=== PATIENT | female | born 2005 | race Caucasian/White ===

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

== ENCOUNTER 2025-01-02 08:29 | Emergency (ER) | payer MEDICAID, SELFPAY ==
[2025-01-02 08:30] VITALS: BMI 41.1
--- NOTE | 2025-01-02 08:56 | EDNOTE_ITS ---
Upper Respiratory Inf. RME/HPI General Chief Complaint: Flu Like Symptoms Stated Complaint: FEVER/CXP x 4 DAYS, COUGHED BLOOD TODAY Time Seen by Provider: 01/02/25 08:56 Source: patient Arrival date/time: 01/02/25 08:29 19-year-old female with no known medical history presents to the emergency room with a chief complaint of fever, coughing up blood x 1 day, congestion x 4 days. Mode of arrival: ambulatory Limitations: no limitations Related Data Previous Rx's ?Medication ?Instructions ?Recorded ibuprofen 200 mg tablet (Motrin IB) 400 mg (2 x 200 mg ) PO Q6H PRN 10/21/20 fever or pain #30 tabs fluticasone propionate 50 1 spray intranasal QDAY #15. 8 mL 09/09/24 mcg/actuation nasal spray,suspension (Flonase Allergy Relief) pseudoephedrine HCl 30 mg tablet 30 mg PO Q12HR #14 ta bs 09/09/24 (Sudafed) acetaminophen 500 mg capsule 500 mg PO Q6H PRN pain #3 0 caps 11/25/24 ibuprofen 600 mg tablet 600 mg PO Q8H PRN pain #20 t abs 11/25/24 azithromycin 250 mg tablet See Rx Instructions PO .COM PLEX #6 01/02/25 (Zithromax Z-Clarence) tabs Allergies Allergy/AdvReac Type Severity Reaction Status Date / Time No Known Allergies Allergy Verified 01/02/25 08:32 Review of Systems Review of Systems Systems Reviewed: All systems reviewed, normal except as documented Constitutional Constitutional: Reports system reviewed and no additional complaints, except as documented, Denies fatigue, Reports fever(s), Denies headache(s) and Reports weakness Eyes Eyes: Reports system reviewed and no additional complaints, except as do cumented, Denies blurry vision and Denies change in vision ENT Ears, Nose, Mouth, and Throat: Reports system reviewed and no additional complaints, except as documented, Denies otalgia, Denies headache(s), Denies nasal congestion, Denies throat swelling and Denies vertigo Cardiovascular Cardiovascular: Reports system reviewed and no additional complaints, except as documented, Denies chest pain, Reports dyspnea and Denies dyspnea on exertion Respiratory Respiratory: Reports system reviewed and no additional complaints, except as documented, Denies chest congestion, Reports cough, Reports dyspnea, Denies dyspnea on exertion, Reports hemoptysis and Denies wheezing Gastrointestinal Gastrointestinal: Reports system reviewed and no additional complaints, except as documented, Denies abdominal pain, Denies cramping, Denies nausea and Denies vomiting Genitourinary Genitourinary: Reports system reviewed and no additional complaints, except as documented Musculoskeletal Musculoskeletal: Reports system reviewed and no additional complaints, except as documented and Denies back pain Integumentary/Breasts Skin/Breast: Reports system reviewed and no additional complaints, except as documented and Denies wounds Neurologic Neurologic: Reports system reviewed and no additional complaints, except as documented, Denies confusion, Denies headache(s), Denies lack of coordination, Denies vertigo and Reports weakness Psychiatric Psychiatric: Reports system reviewed and no additional complaints, except as documented, Denies anxiety, Denies confusion, Denies depression, Denies paranoia, Denies suicidal ideation and Denies tactile hallucinations Endocrine Endocrine: Reports system reviewed and no additional complaints, except as documented and Denies fatigue Hematologic/Lymphatic Hematologic/Lymphatic: Reports system reviewed and no additional complaints, except as documented and Denies lymphadenopathy Allergic/Immunologic Allergic/Immunologic: Reports system reviewed and no additional complaints, exce pt as documented, Denies throat swelling, Denies urticaria and Denies wheezing Past Medical History Past Medical History CARDIAC: Negative Congestive Heart Failure RESPIRATORY: Negative Chronic Obstructive Pulmonary Disease (COPD) GASTROINTESTINAL: Positive Gastrointestinal Disorders and Irritable Bowel GENITOURINARY: Negative Renal Disease ENDOCRINE: Negative Diabetes Mellitus Type 1 or Diabetes Mellitus Type 2 PSYCHO/SOCIAL: Positive Anxiety Social History SMOKING STATUS: Never smoker ED Exam General Limitations: Present no limitations General appearance: Present alert and in no apparent distress Head Head exam: Present atraumatic Eye Eye exam: Present normal appearance, PERRL and EOMI ENT ENT exam: Present normal exam, normal oropharynx and mucous membranes moist Neck Neck exam: Present normal inspection, full ROM and trachea midline Chest Chest inspection: Present normal inspection and symmetric chest wall rise Respiratory Respiratory exam: Present normal lung sounds bilaterally and wheezes; Absent respiratory distress, stridor or accessory muscle use Expanded Respiratory Exam Location: Left: wheezes, Right: wheezes and Lower: wheezes Cardiovascular Cardiovascular exam: Present regular rate, normal rhythm, tachycardia and normal heart sounds Abdominal Exam Abdominal exam: Present soft and normal bowel sounds Extremities Exam Extremities exam: Present normal inspection and full ROM Back Exam Back exam: Present normal inspection and full ROM Neurological Exam Neurological exam: Present alert, oriented X3 and CN II-XII intact Psychiatric Psychiatric exam: Present normal affect and normal mood Skin Skin exam: Present warm, dry, intact and normal color Course Quality Measures none Orders Category Date Time Status Bedside COVID-19 Antigen Test NOW Care 01/02/25 08:56 Completed Bedside Influenza A&B Antigen Test NOW Care 01/02/25 08:56 Completed XR chest 2V Stat Exams 01/02/25 08:56 Completed Acetaminophen Tab [Tylenol Tab] Med 01/02/25 08:56 Discontinued 650 mg PO X1 ONE Albuterol/Ipratr Rt Marisabel [Duoneb Rt Marisabel] Med 01/02/25 08:56 Discontinued 3 ml INH X1 ONE Dexamethasone Inj [Decadron Inj] Med 01/02/25 08:56 Discontinued 10 mg PO X1 ONE Vital Signs Vital signs: Vital Signs Temperature 99.2 F 01/02/25 08:57 Pulse Rate 113 H 01/02/25 08:57 Respiratory Rate 20 01/02/25 08:57 Blood Pressure 141/92 H 01/02/25 08:57 Pulse Oximetry (%) 97 01/02/25 08:57 Oxygen Delivery Method Room Air 01/02/25 08:57 O2 saturation 97% within normal limits Upper Respiratory Infection MDM Narrative MDM Narrative:: 19-year-old female with no known medical history presents to the emergency room with a chief complaint of fever, coughing up blood x 1 day, congestion x 4 days. The patient is hemodynamically stable and in no apparent distress Lung sounds show bilateral wheezing to the lower lobes. Chest x-ray was completed and shows pneumonia to the left lower base. COVID-19 and influenza were negative Patient was discharged and educated to follow-up with primary care provider and return to the emergency room for any evidence of worsening signs or symptoms Patient data External records reviewed:: [facility] previous records Clinical information provided by:: patient Social determinants that could affect healthcare access:: none Patient has the following chronic illnesses:: No chronic illness How is presenting disease/condition affected by chronic disease/condition?: no chronic disease Evaluation data The following diagnostics were reviewed and interpreted by me:: lab results and radiology exam(s) Lab and/or radiology exams considered but not ordered:: Labs and radiology exams considered and ordered Interpretation Summary: Chest [id number]: Suspicious for early pneumonia left base Normal heart size No pulmonary edema IMPRESSION: Suspicious for early pneumonia left base Medications / Prescriptions Medications or Prescriptions considered but not ordered:: Medication given Medication administrations:: Medication Administration History Discontinued Medications Acetaminophen (Acetaminophen 325 Mg Tablet) 650 mg PO X1 ONE Stop: 01/02/25 08:57 Last Admin: 01/02/25 09:21 Dose: 650 mg Documented By: SHEELA Albuterol/Ipratropium (Albuterol/Ipratropium (Duoneb) Rt Marisabel 3 Ml Nebu) 3 ml INH X1 ONE Stop: 01/02/25 08:57 Last Admin: 01/02/25 09:28 Dose: 3 ml Documented By: DYLAN Dexamethasone Sodium Phosphate (Dexamethasone Sod Phos Inj 10 Mg/Ml Vial) 10 mg PO X1 ONE Stop: 01/02/25 08:57 Last Admin: 01/02/25 09:23 Dose: 10 mg Documented By: SHEELA Comments: GIVEN BY MOUTH Medication given Consultations Consultation(s) initiated? (list below): No Diagnosis Upper Respiratory Differential Diagnosis: upper respiratory infection, viral infection, bronchitis, influenza, pharyngitis and other (Community-acquired pneumonia) Most likely diagnosis given after review of the tests above:: Community-acquired pneumonia Admission Indicated Admission indicated?: not indicated Admission Request Was there a request for admission?: No Disposition Plan Disposition Plan: Discharge Discharge Attestation Discharge Attestation: The patient and all family members were given an opportunity to ask questions and understood the discharge instructions. Discharge instructions specifically effects, indications for sooner follow up or return to the emergency department, and the expected course of current diagnosis. Patient condition: Stable Discharge Plan Plan Patient Disposition: HOME (Self Care) Disposition Comment: Stable Prescriptions/Referrals Prescriptions/Med Rec: New azithromycin [Zithromax Z-Clarence] 250 mg tablet See Rx Instructions .ROUTE .COMPLEX Qty: 6 0RF Rx Instructions: For 250 mg dose pack: take 500 mg today (day 1), then 250 mg for 4 days (days 2-5) No Action ibuprofen [Motrin IB] 200 mg tablet 400 mg PO Q6H PRN (Reason: fever or pain) Qty: 30 0RF pseudoephedrine HCl [Sudafed] 30 mg tablet 30 mg PO Q12HR Qty: 14 0RF fluticasone propionate [Flonase Allergy Relief] 50 mcg/actuation spray,suspension 1 spray intranasal QDAY Qty: 15.8 0RF Rx Instructions: administer into each nostril ibuprofen 600 mg tablet 600 mg PO Q8H PRN (Reason: pain) Qty: 20 0RF acetaminophen 500 mg capsule 500 mg PO Q6H PRN (Reason: pain) Qty: 30 0RF Referrals: Ronnell Villarreal MD [Primary Care Provider] - In 1 week Problem List Clinical Impression: Community acquired pneumonia Patient/Caregiver Discharge Instructions Education Materials: ED Pneumonia (Adult) Additional Instructions: Please follow-up with your primary care provider in the next 24 to 48 hours. Your chest x-ray showed early pneumonia. Antibiotics are sent to your pharmacy please pick them up and take them as indicated. For any evidence of worsening signs or symptoms please return to the emergency room immediately Print Language: Faroese Stand Alone Forms: Elisa Award Info., Patient Portal Info Letter PA/RESOURCE MANAGER FORESTER Supervising Physician PA/ELEAZAR Supervising Physician: Dr Perry
--- NOTE | 2025-01-02 08:56 | XR_ITS ---
Examination: PA lateral chest 2 views TECHNIQUE: Upright PA lateral chest 2 views Exam date and time: January 02, 2025 0912 hours INDICATIONS: Coughing fever beginning 4 days ago. FINDINGS: Suspicious for early pneumonia left base Normal heart size No pulmonary edema IMPRESSION: Suspicious for early pneumonia left base
[2025-01-02 08:57] VITALS: BP 141/92; PULSE 113; RESP 20; TEMP 37.3; O2SAT 97
[2025-01-02] MEDS: ACETAMINOPHEN 325 MG TABLET 650 MG PO (09:21)
[2025-01-02] MEDS: DEXAMETHASONE SOD PHOS INJ 10 MG/ML VIAL PO (09:23)
[2025-01-02] MEDS: ALBUTEROL/IPRATROPIUM (Duoneb) RT SOL 3 ML NEBU INH (09:28)
[2025-01-02 09:29] VITALS: PULSE 94; RESP 18; O2SAT 98
== END 2025-01-02 10:30 | disposition home or self-care (01) ==
PROVIDERS: Emergency Provider Emergency Medicine; PCP Family Medicine
DX: J18.9 Pneumonia, unspecified organism (principal); R04.2 Hemoptysis
CPT/HCPCS: 71046; 87400; 87811; 94640; 99283; A9270; J1100

== ENCOUNTER 2025-02-26 13:25 | Emergency (ER) | payer MEDICAID, SELFPAY ==
[2025-02-26 13:27] VITALS: BMI 43.8
[2025-02-26 13:43] VITALS: BP 131/87; PULSE 104; RESP 18; TEMP 36.8; O2SAT 96
--- NOTE | 2025-02-26 13:49 | XR_ITS ---
Examination: PA chest single view TECHNIQUE: Upright PA chest single view Exam date and time: February 26, 2025 1452 hours Comparison January 02, 2025 INDICATIONS: History pneumonia left lung base, coughing fever 4 days. FINDINGS: Normal heart size Poor definition left cardiac contour Osseous structures are intact IMPRESSION: Recommend lateral chest view follow-up to exclude early pneumonia in the lingular segment left upper lobe
--- NOTE | 2025-02-26 13:50 | EDNOTE_ITS ---
ED General RME/HPI General Chief complaint: General Adult/Misc Complain Stated complaint: POSS UTI; PNA 1 MO AGO,FEELS LIKE IT'S COMING BACK Time Seen by Provider: 02/26/25 13:46 Arrival date/time: 02/26/25 13:25 CC: Cough with from painful urination HPI patient has had 2 weeks of cough with phlegm , patient states she was on antibiotics for pneumonia but the symptoms have not changed. The patient states that last night she was feeling feverish but had no temperature as she checked. Patient also states that she has had painful urination times week and a half is seen at [facility] and told she does not have a urinary tract infection but wants a second opinion because it continues to burn when she urinates. Patient denies blood in urine Related Data Previous Rx's ?Medication ?Instructions ?Recorded ibuprofen 200 mg tablet (Motrin IB) 400 mg (2 x 200 mg ) PO Q6H PRN 10/21/20 fever or pain #30 tabs fluticasone propionate 50 1 spray intranasal QDAY #15. 8 mL 09/09/24 mcg/actuation nasal spray,suspension (Flonase Allergy Relief) pseudoephedrine HCl 30 mg tablet 30 mg PO Q12HR #14 ta bs 09/09/24 (Sudafed) acetaminophen 500 mg capsule 500 mg PO Q6H PRN pain #3 0 caps 11/25/24 ibuprofen 600 mg tablet 600 mg PO Q8H PRN pain #20 t abs 11/25/24 azithromycin 250 mg tablet See Rx Instructions PO .COM PLEX #6 01/02/25 (Zithromax Z-Clarence) tabs phenazopyridine 100 mg tablet 100 mg PO TID #6 tabs (Pyridium) Allergies Allergy/AdvReac Type Severity Reaction Status Date / Time No Known Allergies Allergy Verified 02/26/25 13:30 Review of Systems Review of Systems Narrative Review of Systems: GEN: No fever, no chills, no weight loss EYES: No discharge, no visual changes, no pain HEENT: No ear pain, no congestion, no sore throat PULM: No shortness of breath, + cough, no congestion CV: No chest pain, no dyspnea on exertion, no palpitations GI: No nausea, no vomiting, no diarrhea, no pain, no constipation : No frequency, no urgency, + dysuria MUSC/SKEL: No joint pain, no back pain SKIN: No rash PSYCH: No hallucinations, no depression HEME/LYMPH: No easy bleeding or bruising tendencies NEURO: No weakness, no headache Past Medical History Past Medical History CARDIAC: Negative Congestive Heart Failure RESPIRATORY: Negative Chronic Obstructive Pulmonary Disease (COPD) GASTROINTESTINAL: Positive Gastrointestinal Disorders and Irritable Bowel GENITOURINARY: Negative Renal Disease ENDOCRINE: Negative Diabetes Mellitus Type 1 or Diabetes Mellitus Type 2 PSYCHO/SOCIAL: Positive Anxiety Social History SMOKING STATUS: Former smoker ED Exam Narrative Physical exam: [General: Obese not in any acute distress Head normocephalic HEENT: Within acceptable limits Neck is supple nontender Chest equal chest rise nontender to palpation Respiratory: Clear to auscultation no wheezes crackles or rubs CV: Rate rhythm is regular no murmurs rubs or clicks Abdomen is distended secondary to body habitus soft nontender no masses positive bowel sounds all 4 quadrants Back: No CVA tenderness no spinous process tenderness from cervical spine thoracic and lumbar spine Skin: Intact no petechiae rash induration ulceration or crepitus Extremities: Moving all extremity against resistance cap refill less than 2 seconds neurosensory intact Neuro: Awake alert oriented x3 Glascow coma 15 no focal deficits] Course Quality Measures none Orders Category Date Time Status Bedside Influenza A&B Antigen Test NOW Care 02/26/25 13:49 Completed XR chest 1V Stat Exams 02/26/25 13:49 Taken HCG Qualitative,Urine Stat Lab 02/26/25 14:00 Completed Urinalysis Stat Lab 02/26/25 14:00 Completed Vital Signs Vital signs: Vital Signs Temperature 98.3 F 02/26/25 13:43 Pulse Rate 104 H 02/26/25 13:43 Respiratory Rate 18 02/26/25 13:43 Blood Pressure 131/87 H 02/26/25 13:43 Pulse Oximetry (%) 96 02/26/25 13:43 Oxygen Delivery Method Room Air 02/26/25 13:43 [facility] Patient data External records reviewed:: [facility] previous records Clinical information provided by:: patient Social determinants that could affect healthcare access:: none Patient has the following chronic illnesses:: Obesity How is presenting disease/condition affected by chronic disease/condition?: uneffected by Evaluation data The following diagnostics were reviewed and interpreted by me:: lab results and radiology exam(s) Lab and/or radiology exams considered but not ordered:: Influenza AMB is negative Chest x-ray is negative for pneumonia Urine is clean and no UTI. Interpretation Summary: Patient is most likely a URI that is causing her cough. Patient will be discharged home Medications Medications considered but not ordered:: None none Medication administrations:: None Consultations Consultation(s) initiated? (list below): No Diagnosis Differential Diagnosis ED Complaint MDM: URI cough pneumonia Most likely diagnosis given after review of the tests above:: URI cough Admission Indicated Admission indicated?: not indicated Explain why admission is indicated or not indicated:: Stable for discharge Admission Request Was there a request for admission?: No Disposition Plan Disposition Plan: Discharge Discharge Attestation Discharge Attestation: The patient and all family members were given an opportunity to ask questions and understood the discharge instructions. Discharge instructions specifically effects, indications for sooner follow up or return to the emergency department, and the expected course of current diagnosis. Patient condition: Stable Medical Decision Making Differential Diagnosis Differential Diagnosis: URI cough pneumonia Lab Data Labs: Lab Results 02/26/25 Range/Units 14:00 Ur Collection Type Clean Catch Urine Color Lt-Yellow (Lt Yel-Yel) Urine Clarity Clear (Clear/Hazy) Urine pH 7.0 (5.0-7.0) Ur Specific [place] 1.028 (1.001-1.035) Urine Protein Trace (Neg - Trace) Urine Glucose (UA) Negative (Negative) Urine Ketones Negative (Negative) Urine Blood Negative (Negative) Urine Nitrite Negative (Negative) Urine Bilirubin Negative (Negative) Urine Urobilinogen (Auto) Negative (0.0-1.0) mg/dL Ur Leukocyte Esterase Negative (Negative) Urine RBC 2 (0-3) /hpf Urine WBC 1 (0-5) /hpf Ur Squamous Epith Cells 3 (0-5) /hpf Urine Bacteria None (None) Urine HCG, Qual Negative Discharge Plan Plan Patient Disposition: HOME (Self Care) Patient condition on transfer: Stable Prescriptions/Referrals Prescriptions/Med Rec: New phenazopyridine [Pyridium] 100 mg tablet 100 mg PO TID Qty: 6 0RF No Action ibuprofen [Motrin IB] 200 mg tablet 400 mg PO Q6H PRN (Reason: fever or pain) Qty: 30 0RF pseudoephedrine HCl [Sudafed] 30 mg tablet 30 mg PO Q12HR Qty: 14 0RF fluticasone propionate [Flonase Allergy Relief] 50 mcg/actuation spray,suspension 1 spray intranasal QDAY Qty: 15.8 0RF Rx Instructions: administer into each nostril azithromycin [Zithromax Z-Clarence] 250 mg tablet See Rx Instructions .ROUTE .COMPLEX Qty: 6 0RF Rx Instructions: For 250 mg dose pack: take 500 mg today (day 1), then 250 mg for 4 days (days 2-5) ibuprofen 600 mg tablet 600 mg PO Q8H PRN (Reason: pain) Qty: 20 0RF acetaminophen 500 mg capsule 500 mg PO Q6H PRN (Reason: pain) Qty: 30 0RF Referrals: Ronnell Villarreal MD [Physician] - In 1 week No Primary/Family,Physician [Primary Care Provider] - In 1 week Problem List Clinical Impression: Cough, Dysuria Patient/Caregiver Discharge Instructions Other Activity Instructions:: Your urine shows no signs whatsoever of urinary tract infection. Your chest x-ray is negative for any pneumonia most likely a virus that is causing the cough. Please take [id number] cough medicine. I will prescribe you Pyridium for the painful urination. Education Materials: Dysuria, ED Cough Chronic Uncertain Cause Adult, ED Dysuria, Uncertain Cause (Adult) Print Language: Ecuadorean Stand Alone Forms: Elisa Award Info., Patient Portal Info Letter, Work/School Release PA/[employer] Supervising Physician PA/[employer] Supervising Physician: Marcela Wiggins ENP
[2025-02-26 14:08] LABS: Collection Type, Urine Clean Catch
[2025-02-26 14:15] LABS: HCG Qualitative,Urine Negative
[2025-02-26 14:17] LABS: Bilirubin,Urine Negative (Negative); Blood,Urine Negative (Negative); Clarity,Urine Clear (Clear/Hazy); Color,Urine Lt-Yellow (Lt Yel-Yel); Glucose, Urine Negative (Negative); Ketones,Urine Negative (Negative); Leukocyte Esterase,Urine Negative (Negative); Nitrite,Urine Negative (Negative); Protein,Urine Trace (Neg - Trace); RBC,Urine 2 /hpf (0-3); Specific Gravity,Urine 1.028 (1.001-1.035); Squamous Epithelial Cell,Urine 3 /hpf (0-5); Urobilinogen,Urine Negative mg/dL (0.0-1.0); WBC,Urine 1 /hpf (0-5)
== END 2025-02-26 15:35 | disposition home or self-care (01) ==
PROVIDERS: Registered Nurse General Practice; Emergency Provider Emergency Medicine
DX: R05.9 Cough, unspecified (principal); R30.0 Dysuria
CPT/HCPCS: 71045; 81001; 81025; 87400; 99283

== ENCOUNTER 2025-03-16 22:10 | Emergency (ER) | payer MEDICAID, SELFPAY ==
[2025-03-16 22:11] VITALS: BMI 45.3
[2025-03-16 22:25] VITALS: BP 148/91; PULSE 104; RESP 18; TEMP 37.4; O2SAT 97
--- NOTE | 2025-03-16 22:46 | PD.EDFMALE ---
ED Female Urogenital RME/HPI General Chief complaint: Urogenital-Female Stated complaint: FREQUENCY/BURNING WITH URINATION Time Seen by Provider: 03/16/25 22:16 Arrival date/time: 03/16/25 22:10 19 year old female present to emergency room with c/o of urgency,frequency and dysuria for 3 days. new sexually partner. Patient would like G/C testing. SEVERITY: Symptoms are described as being severe with limitations on activities of daily living CONTEXT: The patient is unable to identify any inciting events. DURATION/TIMING: The symptoms started approximately 3 days ASSOCIATED SYMPTOMS: The patient is unable to identify any other associated symptoms. MODIFYING FACTORS: The patient is unable to identify any alleviating or aggravating symptoms. PERTINENT ROS: no fevers, no chest pain/shortness of breath no nausea,vomiting, diarrhea, no dizziness/headache no rash no loc/syncope episode no abd/back pain REVIEW OF SYSTEMS: See History of Present Illness - with the exception of those mentioned in the history of present illness, all other systems reviewed and reported as negative GENERAL: In general the patient is awake, interactive, in an emergency department gurney. HEAD/EYES/EARS/NOSE/THROAT: normo-cephalic, atraumatic, mucus membranes are moist, anicteric, palpebral conjunctiva is pink, trachea is midline. CARDIOVASCULAR: regular rate and regular rhythm, no murmurs, heart sounds are not distant, strong pulses in all four extremities that are equal and symmetric bilateral upper and lower extremities, normal capillary refill. ABDOMEN: soft, not tender, no masses appreciated BACK: normal range of motion without pain. NEUROLOGICAL: cranio-facial features are symmetric, moves all four extremities equally without obvious limitations or weakness. EXTREMITY: no tenderness to palpation over the long bones or large joints of the bilateral upper and lower extremities, no joint swelling, no joint erythema, no signs of trauma, no unilateral leg swelling and no peripheral edema. SKIN: warm, dry, well-perfused, no jaundice, no rash, no telangiectasias or petechia. PSYCH: calm, cooperative, no evidence of psychosis or agitation Related Data Previous Rx's ?Medication ?Instructions ?Recorded ibuprofen 200 mg tablet (Motrin IB) 400 mg (2 x 200 mg) PO Q6H PRN 10/21/20 fever or pain #30 tabs fluticasone propionate 50 1 spray intranasal QDAY #15.8 mL 10/13/24 mcg/actuation nasal spray,suspension (Flonase Allergy Relief) pseudoephedrine HCl 30 mg tablet 30 mg PO Q12HR #14 tabs 09/09/24 (Sudafed) acetaminophen 500 mg capsule 500 mg PO Q6H PRN pain #30 caps 11/25/24 ibuprofen 600 mg tablet 600 mg PO Q8H PRN pain #20 tabs 11/25/24 azithromycin 250 mg tablet See Rx Instructions PO .COMPLEX #6 01/02/25 (Zithromax Z-Clarence) tabs phenazopyridine 100 mg tablet 100 mg PO TID #6 tabs 02/26/25 (Pyridium) nitrofurantoin 100 mg PO Q12H 5 days #10 caps 03/17/25 monohydrate/macrocrystals 100 mg capsule (Macrobid) Allergies Allergy/AdvReac Type Severity Reaction Status Date / Time No Known Allergies Allergy Verified 03/16/25 22:13 Course Course Course Narrative: urine: no infection g/c pending rx: macrobid 100mg bid for 5 days follow up with clinic for further STI testing ( HIV, Sypilis ) Quality Measures none Orders Category Date Time Status Chlamydia/GC/TV - PCR Stat Lab 03/16/25 23:03 Received HCG Qualitative,Urine Stat Lab 03/16/25 23:03 Completed UA [Urinalysis] Stat Lab 03/16/25 23:03 Completed Urine Culture Stat Lab 03/16/25 23:03 Received Nitrofurantoin Macro [Macrobid] Med 03/17/25 00:13 Once 100 mg PO X1 ONE Vital Signs Vital signs: Vital Signs Temperature 99.4 F 03/16/25 22:25 Pulse Rate 104 H 03/16/25 22:25 Respiratory Rate 18 03/16/25 22:25 Blood Pressure 148/91 H 03/16/25 22:25 Pulse Oximetry (%) 97 03/16/25 22:25 Oxygen Delivery Method Room Air 03/16/25 22:25 Urogenital - Female Patient data External records reviewed:: [facility] previous records Clinical information provided by:: patient Social determinants that could affect healthcare access:: none Patient has the following chronic illnesses:: n/a How is presenting disease/condition affected by chronic disease/condition?: no chronic disease Evaluation data The following diagnostics were reviewed and interpreted by me:: lab results Lab and/or radiology exams considered but not ordered:: n/a Interpretation Summary: Urine: no infection hcg: negative c/G pending Medications / Prescriptions Medications or Prescriptions considered but not ordered:: n/a Medication administrations:: Medication Administration History Nitrofurantoin Macrocrystals (Nitrofurantoin Macro 100 Mg Capsule) 100 mg PO X1 ONE Stop: 03/17/25 00:14 n/a Consultations Consultation(s) initiated? (list below): No Diagnosis Urogenital Female Differential Diagnosis: urinary tract infection and other (STI, ) Most likely diagnosis given after review of the tests above:: dysuria Admission Indicated Admission indicated?: not indicated Admission Request Was there a request for admission?: No Disposition Plan Disposition Plan: Discharge Discharge Attestation Discharge Attestation: The patient and all family members were given an opportunity to ask questions and understood the discharge instructions. Discharge instructions specifically effects, indications for sooner follow up or return to the emergency department, and the expected course of current diagnosis. Patient condition: Stable Discharge Plan Plan Patient Disposition: HOME (Self Care) Health Concerns: STI pending Return to ED if symptoms worsen Prescriptions/Referrals Prescriptions/Med Rec: New nitrofurantoin monohyd/m-cryst [Macrobid] 100 mg capsule 100 mg PO Q12H 5 Days Qty: 10 0RF Rx Instructions: must administer with a meal/food No Action ibuprofen [Motrin IB] 200 mg tablet 400 mg PO Q6H PRN (Reason: fever or pain) Qty: 30 0RF pseudoephedrine HCl [Sudafed] 30 mg tablet 30 mg PO Q12HR Qty: 14 0RF fluticasone propionate [Flonase Allergy Relief] 50 mcg/actuation spray,suspension 1 spray intranasal QDAY Qty: 15.8 0RF Rx Instructions: administer into each nostril azithromycin [Zithromax Z-Clarence] 250 mg tablet See Rx Instructions .ROUTE .COMPLEX Qty: 6 0RF Rx Instructions: For 250 mg dose pack: take 500 mg today (day 1), then 250 mg for 4 days (days 2-5) ibuprofen 600 mg tablet 600 mg PO Q8H PRN (Reason: pain) Qty: 20 0RF acetaminophen 500 mg capsule 500 mg PO Q6H PRN (Reason: pain) Qty: 30 0RF phenazopyridine [Pyridium] 100 mg tablet 100 mg PO TID Qty: 6 0RF Referrals: Ronnell Villarreal MD [Primary Care Provider] - In 1 week Problem List Clinical Impression: Dysuria Patient/Caregiver Discharge Instructions Education Materials: ED Dysuria, Uncertain Cause (Adult) Print Language: Wallisian Stand Alone Forms: Elisa Award Info., Patient Portal Info Letter
[2025-03-16 23:35] LABS: Collection Type, Urine Voided; RBC,Urine 0 /hpf (0-3); WBC,Urine 0 /hpf (0-5)
[2025-03-16 23:49] LABS: Bacteria,Urine Rare; Bilirubin,Urine Negative (Negative); Blood,Urine Negative (Negative); Clarity,Urine Clear (Clear/Hazy); Color,Urine Yellow (Lt Yel-Yel); Glucose, Urine 2+ (Negative); Ketones,Urine Negative (Negative); Leukocyte Esterase,Urine Negative (Negative); Nitrite,Urine Negative (Negative); Protein,Urine Trace (Neg - Trace); Specific Gravity,Urine 1.034 (1.001-1.035); Squamous Epithelial Cell,Urine 1 /hpf (0-5); Urobilinogen,Urine Negative mg/dL (0.0-1.0)
[2025-03-16 23:54] LABS: HCG Qualitative,Urine Negative
[2025-03-17] MEDS: NITROFURANTOIN MACRO 100 MG CAPSULE PO (00:38)
[2025-03-17 00:39] VITALS: BP 127/62; PULSE 78; RESP 18; TEMP 36.7; O2SAT 99
[2025-03-17 16:22] LABS: Chlamydia trachomatis PCR Negative (Not Detect); Neisseria Gonorrhoeae DNA PCR Negative (Not Detect); Trichomonas Negative (Negative)
== END 2025-03-17 00:40 | disposition home or self-care (01) ==
PROVIDERS: Physician Assistant; Emergency Provider Emergency Medicine; PCP Family Medicine
DX: R30.0 Dysuria (principal)
CPT/HCPCS: 81001; 81025; 87086; 87491; 87591; 87661; 99283; A9270

== ENCOUNTER 2025-03-19 13:50 | Emergency (ER) | payer MEDICAID, SELFPAY ==
[2025-03-19 14:14] VITALS: BP 102/69; PULSE 97; RESP 18; TEMP 37.1; O2SAT 99
--- NOTE | 2025-03-19 14:25 | XR_ITS ---
Examination: CT abdomen and pelvis without contrast. Coronal 3-D reconstructions. Sagittal 2-D reconstructions. Date and time of exam:March 19, 2025 1504 hours INDICATIONS: Bilateral flank pain beginning 2 days ago CTDI: vol (mGy): 16.6 DLP: (mGycm): 1018 Technique: Axial images of the abdomen have been obtained, 3 mm slice thickness Intravenous contrast material has not been administered. Low dose protocols were performed. One or more of the following dose reduction techniques were used; automated exposure control, adjustment of the mA and/or KV according to patient size, use of iterative reconstruction technique. Findings: No focal liver or splenic lesions Contracted gallbladder No pancreatic or adrenal mass No renal or ureteral calculi, no hydronephrosis Aorta normal size No pericecal inflammatory change No bowel obstruction or diverticulitis No pelvic mass Contracted urinary bladder IMPRESSION: No renal or ureteral calculi, no hydronephrosis No bladder mass or bladder calculi
--- NOTE | 2025-03-19 14:26 | EDNOTE_ITS ---
ED General RME/HPI General Chief complaint: General Adult/Misc Complain Stated complaint: L) FLANK PAIN SINCE STARTING ATB, UTI Time Seen by Provider: 03/19/25 14:23 Source: patient Arrival date/time: 03/19/25 13:50 19-year-old female with no known medical history presents to the emergency room with a chief complaint of left-sided flank pain and dysuria x 3 days. Patient states she was seen here for UTI and discharged with antibiotics but she developed flank pain. Mode of arrival: ambulatory Limitations: no limitations Related Data Previous Rx's ?Medication ?Instructions ?Recorded ibuprofen 200 mg tablet (Motrin IB) 400 mg (2 x 200 mg ) PO Q6H PRN 10/21/20 fever or pain #30 tabs fluticasone propionate 50 1 spray intranasal QDAY #15. 8 mL 09/09/24 mcg/actuation nasal spray,suspension (Flonase Allergy Relief) pseudoephedrine HCl 30 mg tablet 30 mg PO Q12HR #14 ta bs 09/09/24 (Sudafed) acetaminophen 500 mg capsule 500 mg PO Q6H PRN pain #3 0 caps 11/25/24 ibuprofen 600 mg tablet 600 mg PO Q8H PRN pain #20 t abs 11/25/24 azithromycin 250 mg tablet See Rx Instructions PO .COM PLEX #6 01/02/25 (Zithromax Z-Clarence) tabs phenazopyridine 100 mg tablet 100 mg PO TID #6 tabs (Pyridium) nitrofurantoin 100 mg PO Q12H 5 days #10 ca ps 03/17/25 monohydrate/macrocrystals 100 mg capsule (Macrobid) Allergies Allergy/AdvReac Type Severity Reaction Status Date / Time No Known Allergies Allergy Verified 03/19/25 13:54 Review of Systems Review of Systems Systems Reviewed: All systems reviewed, normal except as documented Constitutional Constitutional: Reports system reviewed and no additional complaints, except as documented, Denies fatigue, Denies fever(s), Denies headache(s) and Denies weakness Eyes Eyes: Reports system reviewed and no additional complaints, except as documented, Denies blurry vision and Denies change in vision ENT Ears, Nose, Mouth, and Throat: Reports system reviewed and no additional complaints, except as documented, Denies otalgia, Denies headache(s), Denies nasal congestion, Denies throat swelling and Denies vertigo Cardiovascular Cardiovascular: Reports system reviewed and no additional complaints, except as documented, Denies chest pain, Denies dyspnea and Denies dyspnea on exertion Respiratory Respiratory: Reports system reviewed and no additional complaints, except as documented, Denies chest congestion, Denies cough, Denies dyspnea, Denies dyspnea on exertion and Denies wheezing Gastrointestinal Gastrointestinal: Reports system reviewed and no additional complaints, except as documented, Denies abdominal pain, Denies cramping, Denies nausea and Denies vomiting Genitourinary Genitourinary: Reports system reviewed and no additional complaints, except as documented and Reports dysuria Musculoskeletal Musculoskeletal: Reports system reviewed and no additional complaints, except as documented and Reports back pain Integumentary/Breasts Skin/Breast: Reports system reviewed and no additional complaints, except as documented and Denies wounds Neurologic Neurologic: Reports system reviewed and no additional complaints, except as documented, Denies confusion, Denies headache(s), Denies lack of coordination, Denies vertigo and Denies weakness Psychiatric Psychiatric: Reports system reviewed and no additional complaints, except as documented, Denies anxiety, Denies confusion, Denies depression, Denies paranoia, Denies suicidal ideation and Denies tactile hallucinations Endocrine Endocrine: Reports system reviewed and no additional complaints, except as documented and Denies fatigue Hematologic/Lymphatic Hematologic/Lymphatic: Reports system reviewed and no additional complaints, except as documented and Denies lymphadenopathy Allergic/Immunologic Allergic/Immunologic: Reports system reviewed and no additional complaints, except as documented, Denies throat swelling, Denies urticaria and Denies wheezing ED Exam General Limitations: Present no limitations General appearance: Present alert and in no apparent distress Head Head exam: Present atraumatic Eye Eye exam: Present normal appearance, PERRL and EOMI ENT ENT exam: Present normal exam, normal oropharynx and mucous membranes moist Neck Neck exam: Present normal inspection, full ROM and trachea midline Chest Chest inspection: Present normal inspection and symmetric chest wall rise Respiratory Respiratory exam: Present normal lung sounds bilaterally Cardiovascular Cardiovascular exam: Present regular rate, normal rhythm and normal heart sounds Abdominal Exam Abdominal exam: Present soft and normal bowel sounds Extremities Exam Extremities exam: Present normal inspection and full ROM Back Exam Back exam: Present normal inspection, full ROM and CVA tenderness (L) Neurological Exam Neurological exam: Present alert, oriented X3 and CN II-XII intact Psychiatric Psychiatric exam: Present normal affect and normal mood Skin Skin exam: Present warm, dry, intact and normal color Course Quality Measures none Orders Category Date Time Status CT abdomen pelvis wo con Stat Exams 03/19/25 14:25 Completed CBC Stat Lab 03/19/25 14:30 Completed CMP [Comprehensive Metabolic Panel] Stat Lab 03/19/25 14:30 Completed UA [Urinalysis] Stat Lab 03/19/25 16:19 Completed Urine Culture Stat Lab 03/19/25 16:19 Received Vital Signs Vital signs: Vital Signs Temperature 98.7 F 03/19/25 14:14 Pulse Rate 97 03/19/25 14:14 Respiratory Rate 18 03/19/25 14:14 Blood Pressure 102/69 03/19/25 14:14 Pulse Oximetry (%) 99 03/19/25 14:14 Oxygen Delivery Method Room Air 03/19/25 14:14 O2 saturation 99% within normal limits Discharge Plan Plan Patient Disposition: HOME (Self Care) Disposition Comment: Stable Prescriptions/Referrals Prescriptions/Med Rec: No Action ibuprofen [Motrin IB] 200 mg tablet 400 mg PO Q6H PRN (Reason: fever or pain) Qty: 30 0RF pseudoephedrine HCl [Sudafed] 30 mg tablet 30 mg PO Q12HR Qty: 14 0RF fluticasone propionate [Flonase Allergy Relief] 50 mcg/actuation spray,suspension 1 spray intranasal QDAY Qty: 15.8 0RF Rx Instructions: administer into each nostril azithromycin [Zithromax Z-Clarenec] 250 mg tablet See Rx Instructions .ROUTE .COMPLEX Qty: 6 0RF Rx Instructions: For 250 mg dose pack: take 500 mg today (day 1), then 250 mg for 4 days (days 2-5) nitrofurantoin monohyd/m-cryst [Macrobid] 100 mg capsule 100 mg PO Q12H 5 Days Qty: 10 0RF Rx Instructions: must administer with a meal/food ibuprofen 600 mg tablet 600 mg PO Q8H PRN (Reason: pain) Qty: 20 0RF acetaminophen 500 mg capsule 500 mg PO Q6H PRN (Reason: pain) Qty: 30 0RF phenazopyridine [Pyridium] 100 mg tablet 100 mg PO TID Qty: 6 0RF Referrals: No Primary/Family,Physician [Primary Care Provider] - In 1 week Problem List Clinical Impression: Urinary tract infection Patient/Caregiver Discharge Instructions Education Materials: ED CYSTITIS Female Adult Additional Instructions: Please follow-up with your primary care provider in the next 24 to 48 hours. At this time there is no infection in your kidney. The CT of your abdomen and pelvis was negative for any stone or any fluid buildup in your kidney Your blood work was negative for any acute findings. For any evidence of worsening signs or symptoms return to the emergency room immediately. Please continue to take your antibiotics that were prescribed for a UTI. Print Language: Kuwaiti Stand Alone Forms: [employer] Award Info., Patient Portal Info Letter PA/TELEGRAPH SERVICE CLERK Supervising Physician PA/TELEGRAPH SERVICE CLERK Supervising Physician: dr ronn EDWARD Patient Acuity Low Acuity (complete MDM as needed) Narrative: 19-year-old female with no known medical history presents to the emergency room with a chief complaint of left-sided flank pain and dysuria x 3 days. Patient states she was seen here for UTI and discharged with antibiotics but she developed flank pain. Patient is hemodynamically stable and in no apparent distress The patient is not tachypneic not tachycardic and afebrile Physical examination shows pain and tenderness to the left CVA that radiates down to her left groin area. Patient was diagnosed with a urinary tract infection 3 days ago and has been on Macrobid since. CT of the abdomen and pelvis was completed and was negative for any stone or pyelonephritis Patient was discharged and educated to follow-up with primary care provider in the next 24 to 48 hours and return to the emergency room for any evidence of worsening signs or symptoms Clinical Information Provided by: none Medical Records reviewed None Meds/Rx considered, not ordered None Labs/Rad/Tests considered, not ordered None Chronic Illness/Social Conditions which may negatively complicate care or outcome(s)-explain: None or not applicable EKG EKG not done Labs Labs: Interpreted by me Imaging Imaging interpretation: Interpreted by me Medication Administration(s) none Diagnosis Differential Diagnosis ED Complaint MDM: Urinary tract infection/pyelonephritis/urinary calculi Diagnoses ruled out: Pyelonephritis urinary calculi
[2025-03-19 14:38] LABS: Basophils % (Auto) 0 % (0-2.5); Eosinophils # (Auto) 0.3 Thou/mm3 (0.0-0.5); Eosinophils % (Auto) 3 % (0-10); Hematocrit 39.4 % (36.0-46.0); Hemoglobin 13.8 g/dL (12.0-16.0); Immature Granulocytes % (Auto) 0 % (0-0); Immature Granulocytes Auto 0.02 Thou/mm3 (0.00-0.00); Lymphocytes # (Auto) 2.4 Thou/mm3 (1.0-5.0); Lymphocytes % (Auto) 26 % (10-50); Mean Corpuscular Hemoglobin 30.7 pg (25.0-35.0); Mean Corpuscular Volume 88 fL (80-100); Monocytes # (Auto) 0.5 Thou/mm3 (0.0-0.8); Monocytes % (Auto) 5 % (0-12); Neutrophils # (Auto) 5.9 Thou/mm3 (1.8-7.7); Neutrophils % (Auto) 65 % (37-80); Nucleated Red Blood Cell % 0 /100 WBC (0); Platelet Count 289 Thou/mm3 (140-440); RDW Standard Deviation 40.4 fL (36.4-46.3); Red Blood Count 4.49 Miln/mm3 (4.00-5.20); White Blood Count 9.1 Thou/mm3 (4.5-11.0)
[2025-03-19 15:08] LABS: Alanine Aminotransferase 9 U/L (10-49); Albumin, Serum 4.4 gm/dL (3.5-5.0); Albumin/Globulin Ratio 1.4 (1.2-2.2); Alkaline Phosphatase 77 U/L (46-116); Anion Gap 5 (7-16); Aspartate Amino Transferase 19 U/L (0-34); BUN/Creatinine Ratio 12 Ratio (12-20); Bilirubin,Total 0.5 mg/dL (0.3-1.2); Blood Urea Nitrogen 11 mg/dL (9-23); Calcium 9.2 mg/dL (8.3-10.6); Calcium (Corrected) 9.2 mg/dL (8.5-10.1); Carbon Dioxide 26.1 mMol/L (20.0-31.0); Chloride 109 mMol/L (98-107); Creatinine (Component) 0.9 mg/dL (0.6-1.3); Globulin 3.2 gm/dL (2.3-3.5); Glucose 106 mg/dL (74-106); Osmolality,Calculated 278 (275-295); Potassium 3.7 mMol/L (3.4-5.1); Sodium 140 mMol/L (136-145); Total Protein 7.6 gm/dL (5.7-8.2); eGFR > 60 See Note
[2025-03-19 16:43] LABS: Collection Type, Urine Clean Catch
[2025-03-19 16:54] LABS: Bacteria,Urine Rare; Bilirubin,Urine Negative (Negative); Blood,Urine 2+ (Negative); Clarity,Urine Clear (Clear/Hazy); Color,Urine Yellow (Lt Yel-Yel); Glucose, Urine Negative (Negative); Ketones,Urine Negative (Negative); Leukocyte Esterase,Urine Negative (Negative); Nitrite,Urine Negative (Negative); PH,Urine 5.5 (5.0-7.0); Protein,Urine Negative (Neg - Trace); RBC,Urine 3 /hpf (0-3); Specific Gravity,Urine 1.032 (1.001-1.035); Squamous Epithelial Cell,Urine 3 /hpf (0-5); Urobilinogen,Urine Negative mg/dL (0.0-1.0); WBC,Urine 2 /hpf (0-5)
== END 2025-03-19 16:49 | disposition home or self-care (01) ==
PROVIDERS: Nurse Practitioner Family; Emergency Provider Family Medicine
DX: N39.0 Urinary tract infection, site not specified (principal); R10.9 Unspecified abdominal pain
CPT/HCPCS: 36415; 74176; 80053; 81001; 85025; 87086; 99284

== ENCOUNTER 2025-10-13 00:51 | Emergency (ER) | payer MEDICAID, SELFPAY ==
[2025-10-13 00:56] VITALS: BMI 43.4
--- NOTE | 2025-10-13 01:01 | PD.EDPSYCH ---
ED Psych RME/HPI General Chief Complaint: Suicidal Stated Complaint: MENTAL EVAL Time Seen by Provider: 10/13/25 00:54 Arrival date/time: 10/13/25 00:51 RME / HPI RME / HPI Narrative: Dr. Daley?s Main ED Evaluation: 20 y/o female with Hx of Anxiety BIBA and PPD presents to ED requesting medical clearance for psychiatric evaluation s/p being placed on 5150 hold by PPD. Patient reports attempting to open up to her mother s/p traumatic incident approximately 4 months ago. Patient had a bottle of pink lemonade that mother assumed contained a concoction of her medication and was to be used to cause herself harm. Mother dumped the contents of the bottle and contacted PPD. Mother reported to PPD that patient had a plan but refused to disclose any of the information to her and was then placed on a hold. Denies SI/HI, self-harm, or a plan. Patient admits to having 1 beer tonight. Related Data Previous Rx's ?Medication ?Instructions ?Recorded ibuprofen 200 mg tablet (Motrin IB) 400 mg (2 x 200 mg) PO Q6H PRN 10/21/20 fever or pain #30 tabs fluticasone propionate 50 1 spray intranasal QDAY #15.8 mL 09/09/24 mcg/actuation nasal spray,suspension (Flonase Allergy Relief) pseudoephedrine HCl 30 mg tablet 30 mg PO Q12HR #14 tabs 09/09/24 (Sudafed) acetaminophen 500 mg capsule 500 mg PO Q6H PRN pain #30 caps 11/25/24 ibuprofen 600 mg tablet 600 mg PO Q8H PRN pain #20 tabs 11/25/24 azithromycin 250 mg tablet See Rx Instructions PO .COMPLEX #6 01/02/25 (Zithromax Z-Clarence) tabs phenazopyridine 100 mg tablet 100 mg PO TID #6 tabs 02/26/25 (Pyridium) Allergies Allergy/AdvReac Type Severity Reaction Status Date / Time No Known Allergies Allergy Verified 03/19/25 13:54 Review of Systems Review of Systems Systems Reviewed: All systems reviewed, normal except as documented Past Medical History Past Medical History GASTROINTESTINAL: Positive Irritable Bowel PSYCHO/SOCIAL: Positive Anxiety ED Exam Narrative Physical exam: GENERAL APPEARANCE: alert and oriented x 4, well-developed, well-nourished, no acute distress VITALS: All vitals were reviewed and the pulse ox is % on room air, which is normal according to my interpretation. HEENT: normocephalic, atraumatic NECK: supple LUNGS: no respiratory distress, normal effort HEART: good peripheral perfusion ABDOMEN: non distended EXTREMITIES: atraumatic NEUROLOGIC: awake; alert and oriented x4; cranial nerves II-XII grossly intact PSYCHIATRIC: appropriate mood and affect SKIN: warm, dry, normal color; no rashes Course Course Course Narrative: Patient was placed in observation for treatment and monitoring of psychiatric symptoms, at 01:00 10/13/2025. Symptoms consist of suicidal ideation and depression. Treatment plan includes psychiatric consult, reassessments, and possible placement into psychiatric facility. The patient had access and provided personal hygiene, shower, food, water, and daily medications. Observation ended at 10/13/2025 at 0600 hours. Care assumed by Dr. Abreu (emergency physician). Past medical, surgical, social and family history reviewed. Vitals and home medications reviewed. Results and treatment plan discussed. They will assume the care of the patient at this time and will follow the patient, pending psychiatric evaluation. Quality Measures none Orders Category Date Time Status One-to-one observation NOW Care 10/13/25 01:45 Completed Suicide precautions NOW Care 10/13/25 06:46 Completed Acetaminophen Stat Lab 10/13/25 02:27 Completed Alcohol, Blood Medical Stat Lab 10/13/25 02:27 Completed CBC Stat Lab 10/13/25 02:27 Completed CMP [Comprehensive Metabolic Panel] Stat Lab 10/13/25 02:27 Completed Drug Screen,Urine Stat Lab 10/13/25 02:30 Completed Salicylate Stat Lab 10/13/25 02:27 Completed TSH [Thyroid Stimulating Hormone] Stat Lab 10/13/25 02:27 Completed Vital Signs Vital signs: Vital Signs Temperature 98.4 F 10/13/25 01:42 Pulse Rate 97 10/13/25 01:42 Respiratory Rate 16 10/13/25 01:42 Blood Pressure 114/76 10/13/25 01:42 Pulse Oximetry (%) 95 10/13/25 01:42 Psych MDM Narrative MDM Narrative:: Care of the patient turned over to Dr. Abreu at shift change scribe Attestation: I, Anne Moran, am scribing for and in the presence of Dr. Daley. Provider Notation: Although this document has been carefully reviewed, there may still be some phonetic and other typographical errors. These errors are purely grammatical due to imperfections in the software program and should not be construed in any way to compromise the substance of the patient's medical care during this visit. 0353: Patient has been medically cleared. Pending psychiatric evaluation in the morning. Patient data External records reviewed:: [facility] previous records (Reviewed prior ED records from 03/19/25. Patient was seen for Urinary tract infection.) and EMS form Clinical information provided by:: patient, EMS and law enforcement Social determinants that could affect healthcare access:: mental health Patient has the following chronic illnesses:: Anxiety, IBS How is presenting disease/condition affected by chronic disease/condition?: exacerbated by Evaluation data The following diagnostics were reviewed and interpreted by me:: lab results Lab and/or radiology exams considered but not ordered:: None Interpretation Summary: See MDM above Medications / Prescriptions Medications or Prescriptions considered but not ordered:: None Medication administrations:: See above if any Consultations Consultation(s) initiated? (list below): No Diagnosis Psych Differential Diagnosis: acute psychosis, suicidal ideation, bipolar disorder, depression, drug-induced psychotic disorder and acute anxiety Most likely diagnosis given after review of the tests above:: See clinical impression below Admission Indicated Admission indicated?: not indicated Explain why admission is indicated or not indicated:: Pending psychiatric evaluation Admission Request Was there a request for admission?: No Disposition Plan Disposition Plan: other (specify) (Signed out to Dr. Abreu at 6 AM) Discharge Plan Plan Patient Disposition: HOME (Self Care) Prescriptions/Referrals Prescriptions/Med Rec: No Action ibuprofen [Motrin IB] 200 mg tablet 400 mg PO Q6H PRN (Reason: fever or pain) Qty: 30 0RF pseudoephedrine HCl [Sudafed] 30 mg tablet 30 mg PO Q12HR Qty: 14 0RF fluticasone propionate [Flonase Allergy Relief] 50 mcg/actuation spray,suspension 1 spray intranasal QDAY Qty: 15.8 0RF Rx Instructions: administer into each nostril azithromycin [Zithromax Z-Clarence] 250 mg tablet See Rx Instructions .ROUTE .COMPLEX Qty: 6 0RF Rx Instructions: For 250 mg dose pack: take 500 mg today (day 1), then 250 mg for 4 days (days 2-5) ibuprofen 600 mg tablet 600 mg PO Q8H PRN (Reason: pain) Qty: 20 0RF acetaminophen 500 mg capsule 500 mg PO Q6H PRN (Reason: pain) Qty: 30 0RF phenazopyridine [Pyridium] 100 mg tablet 100 mg PO TID Qty: 6 0RF Referrals: No Primary/Family,Physician [Primary Care Provider] - In 1 week Problem List Clinical Impression: Alcohol use Patient/Caregiver Discharge Instructions Discharge Activity: activity as tolerated Education Materials: Recognizing Suicide Warning ..., ED Alcohol Intoxication Additional Instructions: Discharge Instructions from Dr. Abreu: 1. After evaluation by our ED daycare director, you are being discharged your mom. Follow the instructions and their safety plan given to you. 2. You don't meet the criteria for transfer to psychiatric unit against your will.? Because you currently have no thoughts of hurting yourself or others.? And there are no signs of psychosis (loss of touch with reality) which can potentially be harmful to you and others. 3. See a private doctor on 10/14/2025 for recheck and further care. Ask to help you stay healthy both physically and mentally.? And help to receive all services available to you, including referral to see mental health specialists. 4. Seek immediate medical care (you can call 911 any time) with thoughts of hurting yourself or with any concerns. Print Language: Kazakh Stand Alone Forms: [employer] Award Info., Patient Portal Info Letter
[2025-10-13 01:42] VITALS: BP 114/76; PULSE 97; RESP 16; TEMP 36.9; O2SAT 95
[2025-10-13 02:34] LABS: Basophils # (Auto) 0.0 Thou/mm3 (0.0-0.2); Basophils % (Auto) 0 % (0-2.5); Eosinophils # (Auto) 0.1 Thou/mm3 (0.0-0.5); Eosinophils % (Auto) 1 % (0-10); Hematocrit 39.5 % (36.0-46.0); Hemoglobin 13.2 g/dL (12.0-16.0); Immature Granulocytes Auto 0.02 Thou/mm3 (0.00-0.00); Lymphocytes # (Auto) 2.3 Thou/mm3 (1.0-4.8); Lymphocytes % (Auto) 28 % (10-50); Mean Corpuscular HGB Conc 33.4 g/dl (31.0-37.0); Mean Corpuscular Hemoglobin 30.6 pg (25.0-35.0); Mean Corpuscular Volume 91 fL (80-100); Monocytes # (Auto) 0.5 Thou/mm3 (0.0-0.8); Monocytes % (Auto) 6 % (0-12); Neutrophils # (Auto) 5.4 Thou/mm3 (1.8-7.7); Neutrophils % (Auto) 65 % (37-80); Nucleated Red Blood Cell # 0.00 Thou/mm3 (0.00-0.00); Nucleated Red Blood Cell % 0 /100 WBC (0); Platelet Count 298 Thou/mm3 (140-440); RDW Standard Deviation 40.9 fL (36.4-46.3); Red Blood Count 4.32 Miln/mm3 (4.00-5.20); White Blood Count 8.4 Thou/mm3 (4.5-11.0)
[2025-10-13 02:54] LABS: Amphetamine/Methamp Scrn,U Negative (Negative); Barbiturate Screen,Urine Negative (Negative); Benzodiazepines Screen,Urine Negative (Negative); Benzoylecgonine Screen, Ur Negative (Negative); Fentanyl Screen,Urine Negative (Negative); Opiate Screen,Urine Negative (Negative); THC Screen,Urine Negative (Negative)
[2025-10-13 02:54] LABS: Acetaminophen < 2.0 mcg/mL (10.0-20.0); Alanine Aminotransferase 11 U/L (10-49); Albumin, Serum 4.6 gm/dL (3.5-5.0); Albumin/Globulin Ratio 1.8 (1.2-2.2); Alcohol, Blood Medical 35.8 mg/dL (0-10.0); Alkaline Phosphatase 67 U/L (46-116); Anion Gap 12 (7-16); Aspartate Amino Transferase 20 U/L (0-34); BUN/Creatinine Ratio 9 Ratio (12-20); Bilirubin,Total 0.3 mg/dL (0.3-1.2); Blood Urea Nitrogen 7 mg/dL (9-23); Calcium 9.1 mg/dL (8.3-10.6); Calcium (Corrected) 9.1 mg/dL (8.5-10.1); Carbon Dioxide 21.3 mMol/L (20.0-31.0); Chloride 110 mMol/L (98-107); Creatinine (Component) 0.8 mg/dL (0.6-1.3); Estimated Creatinine Clearance 124.7 mL/min (>60); Globulin 2.6 gm/dL (2.3-3.5); Glucose 96 mg/dL (74-106); Osmolality,Calculated 282 (275-295); Potassium 3.8 mMol/L (3.4-5.1); Salicylate < 3.0 mg/dL; Sodium 143 mMol/L (136-145); Thyroid Stimulating Hormone 1.16 uIU/mL (0.55-4.78); Total Protein 7.2 gm/dL (5.7-8.2); eGFR > 60 See Note
[2025-10-13 05:33] VITALS: BP 115/80; PULSE 96; RESP 18; TEMP 36.9; O2SAT 97
[2025-10-13 07:00] VITALS: BP 137/99; PULSE 83; RESP 18; TEMP 36.4; O2SAT 97
--- NOTE | 2025-10-13 07:45 | EDNOTE_ITS ---
Emergency Room Addendum Addendum Narrative: I took over the care from previous shift physician, Dr. Daley, at _0600_ on _10/13/25_.? See previous notes for complete H & P and ED course.?? I reviewed all diagnostic test results. To me, she reports no thoughts of hurting herself or others. No hallucinations. After evaluation by our ED progressive care unit registered nurse, recommended discharge home with safety plan. Based on my best medical judgment, made decision no further evaluation or treatment indicated at this time.? Patient understands and agrees to the discharge instructions customized and printed, see below. Discharge Instructions from Dr. Abreu: 1. After evaluation by our ED progressive care unit registered nurse, you are being discharged your mom. Follow the instructions and their safety plan given to you. 2. You don't meet the criteria for transfer to psychiatric unit against your will.? Because you currently have no thoughts of hurting yourself or others.? And there are no signs of psychosis (loss of touch with reality) which can potentially be harmful to you and others. 3. See a private doctor on 10/14/2025 for recheck and further care. Ask to help you stay healthy both physically and mentally.? And help to receive all services available to you, including referral to see mental health specialists. 4. Seek immediate medical care (you can call 911 any time) with thoughts of hurting yourself or with any concerns. Dustin Abreu MD
--- NOTE | 2025-10-13 09:24 | PC.CC ---
Patient is a 20 year-old female BIBA from home on a 5150-hold by [facility] Officer Kishan Brandojeanette for Danger to Self. Rina made [id number] contact with patient to complete assessment. INSURANCE LEGAL ASSISTANT introduced self, role, and reason for assessment. INSURANCE LEGAL ASSISTANT disclosed limits of confidentiality as well. Patient appeared alert and oriented to self, place, and situation. Patient made appropriate eye contact with this financial writer. Patient appeared euthymic. Patient?s attitude was pleasant and cooperative. No signs of delusions, paranoia or hallucinations during assessment. Patient reports that she broke up with her boyfriend a week ago as she caught him being unfaithful. She disclosed that yesterday she was talking to her mother as she felt a need to vent about the breakup. At which time she was drinking ?[place] Lemonade.? Her mother thought she had put something in the lemonade as it had bubbles at the top and proceeded to call 911. Patient attempted to explain to her mother that she did not put anything in the bottle. When law enforcement arrive to the home the patient reports they were being rude and she would not speak to them. She expressed that she would not speak to them because when she is mad/frustrated she rather not speak as she felt like they were not letting her explain and this is when the Officer told her she was being placed on a 5150-hold. Per patient, she does have mental health history of PTSD and Generalized Anxiety Disorder. She is connected to [facility] for outpatient mental health services and is seen by her Clinician Charlotte once a week on Fridays at 3pm. She is prescribed Buspirone 10mg as needed for anxiety by her PCP. Patient denied previous suicide attempts or being placed on a 5150-hold. At the time of encounter patient?s denying suicidal and homicidal ideations and visual and auditory hallucinations. Patient?s [place] Screening was Low-Risk. Patient is willing to safety plan and would like to go home with mother. Patient provided verbal consent to contact her mother, Elizabeth Gusman . Per mother, she cannot confirm there was anything in the pink lemonade that the patient was drinking as she dumped it out. Mother reports that the patient did make verbal suicidal statements to her but did not share plan or intention. She reports she is concerned as she made these statements to her. Janelle VUONG went back spoke to the patient regarding mother concerns and patient denied that she made suicidal statements to her mother. Mother, Elizabeth presented to the hospital and Janelle VUONG made face to face contact with patient and mother. Janelle VUONG discusses discrepancy of what the patient reported to this financial writer versus what mother had shared of patient making suicidal statements. Patient continues to deny suicidal statements were made and would like to safety plan. Janelle VUONG explained to mother and patient that if patient makes suicidal statements with our without a plan and feels patient is a danger to self she can bring her back to the hospital. Upon clinical consultation with Marlyn VUONG patient does not meet criteria for 5150-hold and it will be rescinded with safety plan established. Safety plan established with patient and mother is that mother will provide extra-supervision for the next 72 hours, patient and mother are going to attempt and get a sooner appointment with the psychiatrist at [facility], mother will lock all sharps, medications, and patient is too keep door open to the bedroom, there are no fire arms in the home. Janelle VUONG provided update to medical staff and safety plan with plan that was established.
[2025-10-13 09:50] VITALS: BP 124/84; PULSE 93; RESP 16; TEMP 36.7; O2SAT 98
== END 2025-10-13 09:51 | disposition home or self-care (01) ==
PROVIDERS: Emergency Medicine; Emergency Provider Emergency Medicine
DX: Z00.8 Encounter for other general examination (principal)
CPT/HCPCS: 36415; 80053; 80307; 80320; 80329; 84443; 85025; 96127; 99283; G0480